=== PATIENT | female | born 1990 | race Caucasian/White ===

== ENCOUNTER 2024-12-28 07:28 | Inpatient (IN) | payer BC, SELFPAY ==
[2024-12-28 07:46] VITALS: BP 106/70; BMI 24.8
[2024-12-28 08:50] LABS: % Basophils 0.2 % (0-2); % Eosinophils 0.5 % (0-6); % Immature Granulocytes 0.4 % (0-0.5); % Lymphocytes 18.2 % (20.5-51.1); % Monocytes 6.5 % (1.7-9.3); % Neutrophils 74.2 % (42.2-75.2); Absolute Monocytes 0.4 10^3/uL (0.1-0.6); Absolute Neutrophils 4.1 10^3/uL (1.4-6.5); Hematocrit 37.3 % (37.0-47.0); Hemoglobin 12.7 g/dL (12.0-16.0); Mean Corpuscular Hgb 30.8 pg (27.0-31.0); Mean Corpuscular Volume 90.3 fL (81.0-99.0); Mean Platelet Volume 10.8 fL (7.4-10.4); Nucleated Red Blood Cells % 0 %; Platelet Count 137 10^3/uL (130-400); Red Blood Cell Count 4.13 10^6/uL (4.20-5.40); Red Cell Dist. Width 13.5 % (11.5-14.5); White Blood Cell Count 5.5 10^3/uL (4.8-10.8)
[2024-12-28] MEDS: LR 1000 IV (09:05)
[2024-12-28] MEDS: PENICILLIN 110 UNITS IV (09:05)
[2024-12-28] MEDS: PITOCIN 30 UNITS/NSS 500 ML IV (09:06)
[2024-12-28] MEDS: SUBLIMAZE 100 MCG EPIDURAL (12:12)
[2024-12-28] MEDS: FENTANYL/BUPIVACAINE 100 EPIDURAL (12:12)
[2024-12-28] MEDS: PENICILLIN 55 UNITS IV (13:07)
[2024-12-28] MEDS: TYLENOL 1000 MG PO (14:24)
[2024-12-28] MEDS: BICITRA 30 ML PO (14:24)
[2024-12-28] MEDS: ANCEF 10 IV (14:45)
[2024-12-28] MEDS: ZITHROMAX INFUSION 250 IV (14:50)
--- NOTE | 2024-12-28 16:34 | HPS.HSE ---
Family Physician
-
Family Physician: NOT KNOW UNKNOWN - PT DOES
Chief Complaint
-
elective IOL
History of Present Illness
HPI: Patient is a 34yo @39.5 who presents for eIOL. She has no complaints. Denies ctx, VB, or LOF. +FM
complications
- GBS positive
- Depression, on Celexa
PMHx: depression
Meds: Celexa 30mg qD
Surghx: denies
NKDA
Socialhx: denies tobacco, etoh or illicit drug use
Famhx: denies
OBHx: SVDx2- 2021
labs: Blood type O+, Ab neg, Pap NILM neg HPV, HBsAg neg, HIV neg, GCCT neg, Hep C neg, A1C 5.2, 1hr 90, GBS pos
Medical History
Past Medical History
Past Medical History: Reports Other (depression)
Additional Past Medical History:
depression
Past Surgical History: Reports None
Social History
Tobacco: Non-smoker
Alcohol: None
Drug: None
Family History
Family History: Not pertinent
Allergies / Home Medications
Allergies reflects when Allergies were last updated in [email or web address].
Home Medications with original date entered in [email or web address]
Allergy/Medication List:
NKDA
Meds: Celexa 30mg qD
Review of Systems
-
A 12 point ROS was completed and negative except as noted: Yes
Physical Exam
Vital Signs
Vital Signs
Temp Pulse Resp BP
98.5 F 71 18 106/70
12/28/24 07:46 12/28/24 07:46 12/28/24 07:46 12/28/24 07:46
Physical Exam
General: Well Developed and Well Nourished
HEENT: NormoCephalic
Respiratory: Non Labored Respirations
Cardiac: Regular Rhythm
Genito-urinary: Other (SVE /-3)
Skin: Warm and Dry
Neuro: Awake and Alert
Psych: Calm
Laboratory Results
-
12/28/24 08:27
Impression/Plan
-
IMPRESSION:
Patient is a 34yo @39.5 who presents for eIOL
PLAN:
Elective induction of labor started with Cook balloon placement and Pitocin. She was also given PCN for GBS positive. After she received her epidural, cook balloon was removed. She was 5-6/80/-2 and AROM was performed for clear fluid. After AROM,
fetus was palpated to be in brow presentation. Primary section recommended. Risks, benefits and alternatives discussed including bleeding, infection, damage to surrounding structures and need for future operations. Consents were signed. She
was consented for a blood transfusion if needed. 2g of Ancef and 500mg of azithromycin were ordered. Anesthesia was notified.
--- NOTE | 2024-12-28 16:56 | OR.RPT ---
Operative Report
Operative Report
Date of procedure: 12/28/2024
Preop diagnosis: IUP @39.5, brow presentation
Postop diagnosis: same
Procedure: Primary low transverse section
Surgeon: Galileo
Anesthesia: Epidural, [place]
QBL: 770mL
Complications: none
Findings: viable male infant born at 1452, Apgars 7/9. Normal appearing bilateral fallopian tubes and ovaries. Oozing from left corner of the hysterotomy controlled with figure of eights and Surgicel
Hammer catheter draining clear urine before and after the procedure
Indication: Patient is a 34yo @39.5 who presented to Labor and Delivery for elective induction of labor. A cook balloon was placed with 60/60mL in the uterine/vaginal balloons. Penicillin was started for GBS prophylaxis and Pitocin was
started. Patient received an epidural. After the second dose of penicillin, cook balloon was removed and patient was found to be 5-6/80/-2. Artificial rupture of membranes was performed for clear fluid with patient permission. After AROM, brow
presentation was palpated. Primary section for brow presentation was recommended. Risks, benefits and alternatives discussed and consents signed. Ancef and azithromycin were ordered for antibiotic prophylaxis.
Procedure: Patient was taken to the operating room where epidural was bolused and found to be adequate. 2g of Ancef and 500mg azithromycin were given for antibiotic prophylaxis. The abdomen was prepped with ChloraPrep. The patient was draped in the
normal sterile fashion. She was placed in the dorsal supine position with a left lateral tilt. A Pfannenstiel incision was made with a 10 blade and carried down to the fascia with a scalpel. Hemostasis achieved with Bovie. The fascia was incised and
dissected laterally with Grimes scissors. The superior aspect of the fascia was grasped with Craig clamps. The underlying rectus fascia was sharply dissected with Grimes scissors. In a similar fashion the inferior aspect of the fascia was elevated with
Craig clamps and the rectus muscle was dissected off with Grimes scissors. The rectus muscles were down the midline to the level of the pubic symphysis with manual dissection. The peritoneum was bluntly entered and extended using manual
traction.
Trinh retractor and bladder blade were placed revealing good visualization of the bladder. The vesicouterine peritoneum was identified. A thin lower uterine segment was noted. The lower uterine segment was incised with a scalpel. Amniotic sac
noted at entry into uterine cavity. The amniotic sac was ruptured for clear fluid with an Allis clamp. The uterine incision was extended bluntly with lateral and upward traction.
The fetus was in brow presentation. The head was elevated out of the pelvis with special attention paid to avoid using the uterine incision as a fulcrum. Gentle fundal pressure was applied one the head was brought to the incision. The head delivered
through the hysterotomy and the rest of the delivered without difficulty. Delayed cord clamping was performed. The was handed off to the seafood technology specialist. IV oxytocin was started to facilitate uterine contractions. The placenta was
manually extracted. The uterus was exteriorized. Allis clamps were placed at the apices of the hysterotomy. The inside of the uterus was wiped with a lap sponge to assure complete removal of placental membranes. Fundal massage was performed and
uterus was firm. The uterine incision was closed with 0 Vicryl in a running locked fashion. A horizontal imbricating stitch was done on the hysterotomy with 0 Vicryl. There was oozing from the left corner of the hysterotomy and multiple figure of
eights were placed with 0 Vicryl and 2-0 Vicryl to achieve hemostasis. The hysterotomy was inspected and noted to be hemostatic. The uterus was placed back in the abdomen. Blood clots and fluid were wiped out of the abdomen and pelvis with moist
laparotomy sponges. The hysterotomy was examined again and was hemostatic. Surgicel was placed over the hysterotomy. There was oozing from the edge of the peritoneum and Bovie cautery was used to achieve hemostasis.
The rectus muscles were inspected and bleeding from the left side of the rectus. Bovie cautery achieved hemostasis. The fascial layer was closed in a running continuous fashion using 0 Vicryl. The subcutaneous tissue was copiously irrigated and any
small bleeding vessels were cauterized with Bovie cautery. The subcutaneous tissue was less than 2cm and was not reapproximated. The skin was closed with 4-0 Vicryl in a subcuticular fashion and covered with skin glue. A pressure dressing was placed
over the incision. The patient tolerated the procedure well. All sponge and instrument counts were correct times two. The patient was taken to the recovery room in stable condition. The Hammer was draining clear urine at the end of the procedure.
[2024-12-28] MEDS: TORADOL 15 MG IV (21:02)
[2024-12-28] MEDS: TYLENOL 650 MG PO (21:42)
[2024-12-29] MEDS: TORADOL 15 MG IV ×3 (03:00→15:01)
[2024-12-29] MEDS: FLUSH (NSS) 3 FLUSH IV (03:01)
[2024-12-29] MEDS: TYLENOL 650 MG PO (03:23)
[2024-12-29 03:38] LABS: Hemoglobin 11.1 g/dL (12.0-16.0); Mean Corp Hgb Conc. 33.6 g/dL (33.0-37.0); Mean Corpuscular Hgb 30.9 pg (27.0-31.0); Mean Corpuscular Volume 91.9 fL (81.0-99.0); Mean Platelet Volume 11.1 fL (7.4-10.4); Platelet Count 140 10^3/uL (130-400); Red Blood Cell Count 3.59 10^6/uL (4.20-5.40); Red Cell Dist. Width 13.2 % (11.5-14.5); White Blood Cell Count 9.8 10^3/uL (4.8-10.8)
[2024-12-29] MEDS: CELEXA 30 MG PO (08:39)
[2024-12-29] MEDS: SENOKOT-S 1 TABLET PO (08:41)
[2024-12-29] MEDS: PRENATAL PLUS 1 TABLET PO (08:41)
[2024-12-29 14:57] LABS: Syphilis/T. pallidum Ab Reflex Negative (Negative)
--- NOTE | 2024-12-29 17:57 | W.PN.ANS.POP ---
Anesthesia Post Operative
- Anesthesia Post Op Note
Vital Signs Stable-See Nursing Note: Yes
Airway Patent: Yes
Adequate Pain Control: Yes
Change in Mental Status: No
Current Postoperative Nausea & Vomiting: No
Anesthesia Complications: No
General Anesthetic Recall: No
Unplanned Admission: No
Post Op Hydration Adequate: Yes
[2024-12-29] MEDS: MOTRIN 600 MG PO (22:30)
[2024-12-29] MEDS: PERCOCET 5/325 1 TABLET PO (22:30)
[2024-12-30] MEDS: MYLICON 80 MG PO (01:34)
[2024-12-30] MEDS: PERCOCET 5/325 1 TABLET PO (05:35)
[2024-12-30] MEDS: MOTRIN 600 MG PO (05:36)
[2024-12-30] MEDS: PRENATAL PLUS 1 TABLET PO (08:44)
[2024-12-30] MEDS: CELEXA 30 MG PO (08:44)
[2024-12-30] MEDS: SENOKOT-S 1 TABLET PO (08:44)
--- NOTE | 2024-12-31 16:18 | W.DS.TRANS ---
DC Summary - Submarine Worker
-
Discharge Instructions:
Discharge Diagnosis/Procedures caesarean delivery
Instructions:
Stand-Alone Forms: LDRP Delivery
Changes to Home Medications: No
Discharge Medications:
DC Medications w/original date entered in [facility]
Celexa 30 mg PO DAILY 12/28/24
prenat.vits,lelia,xfj-eudr-fzagu 1 tab PO DAILY 12/28/24
acetaminophen 325 mg tablet 650 mg (2 x 325 mg) PO Q4HPRN PRN mild pain #0 tabs 12/30/24
ibuprofen 600 mg tablet 600 mg PO Q6HPRN PRN cramps #40 tabs 12/30/24
oxycodone-acetaminophen 5 mg-325 mg tablet 1 tab PO Q4HPRN PRN moderate pain #12 tabs 12/30/24
sennosides 8.6 mg-docusate sodium 50 mg tablet 1 tab PO DAILYPRN PRN constipation #0 tabs 12/30/24
simethicone 80 mg chewable tablet 80 mg PO TIDPRN PRN flatulence #0 tabs 12/30/24
Home Medication Changes
Pending Results: No
Total time spent discharging patient (in min): 20
== END 2024-12-30 11:27 | disposition home or self-care (01) | DRG 788 ==
LOC: LDRP 07:28
PROVIDERS: ADMITTING PHYSICIAN Student in an Organized Health Care Education/Training Program; FAMILY PHYSICIAN Family Medicine
PROC: 10D00Z1 Extraction of Products of Conception, Low, Open Approach (ICD-10-PCS; 2024-12-28)
PROC: 3E033VJ Introduction of Other Hormone into Peripheral Vein, Percutaneous Approach (ICD-10-PCS; 2024-12-28)
PROC: 0U7C7DJ Dilation of Cervix with Intraluminal Device, Temporary, Via Natural or Artificial Opening (ICD-10-PCS; 2024-12-28)
PROC: 10907ZC Drainage of Amniotic Fluid, Therapeutic from Products of Conception, Via Natural or Artificial Opening (ICD-10-PCS; 2024-12-28)
DX: O99.824 Streptococcus B carrier state complicating childbirth (principal); O32.3XX0 Maternal care for face, brow and chin presentation, not applicable or unspecified; O99.344 Other mental disorders complicating childbirth; F32.A Depression, unspecified; O69.81X0 Labor and delivery complicated by cord around neck, without compression, not applicable or unspecified; Z37.0 Single live birth; Z3A.39 39 weeks gestation of pregnancy
CPT/HCPCS: 36415; 85025; 85027; 86780; 86850; 86900; 86901

== ENCOUNTER 2025-04-07 07:46 | Outpatient (RCR) | payer BC, SELFPAY | END 2025-04-07 23:59 | disposition home or self-care (01) | LOC: RPT 07:46 | PROVIDERS: ATTENDING PHYSICIAN Student in an Organized Health Care Education/Training Program; FAMILY PHYSICIAN Nurse Practitioner Family | DX: R10.2 Pelvic and perineal pain (principal); M62.89 Other specified disorders of muscle; R35.0 Frequency of micturition; N39.3 Stress incontinence (female) (male); Z73.6 Limitation of activities due to disability | CPT/HCPCS: 97163; 97530 ==

== ENCOUNTER 2025-04-23 11:50 | Outpatient (RCR) | payer BC, SELFPAY | END 2025-04-23 23:59 | disposition home or self-care (01) | LOC: RPT 11:50 | PROVIDERS: ATTENDING PHYSICIAN Student in an Organized Health Care Education/Training Program; FAMILY PHYSICIAN Nurse Practitioner Family | DX: R10.2 Pelvic and perineal pain (principal); M62.89 Other specified disorders of muscle; R35.0 Frequency of micturition; N39.3 Stress incontinence (female) (male); Z73.6 Limitation of activities due to disability | CPT/HCPCS: 97112; 97140; 97530 ==

== ENCOUNTER 2025-06-18 06:54 | Outpatient (RCR) | payer BC, SELFPAY | END 2025-06-18 23:59 | disposition home or self-care (01) | LOC: RPT 06:54 | PROVIDERS: ATTENDING PHYSICIAN Student in an Organized Health Care Education/Training Program; FAMILY PHYSICIAN Nurse Practitioner Family | DX: R10.2 Pelvic and perineal pain (principal); M62.89 Other specified disorders of muscle; R35.0 Frequency of micturition; N39.3 Stress incontinence (female) (male); R10.20 Pelvic and perineal pain unspecified side; Z73.6 Limitation of activities due to disability | CPT/HCPCS: 97110; 97140; 97530 ==